=== PATIENT | female | born 1965 | race Caucasian/White ===

== ENCOUNTER 2019-08-11 11:25 | Outpatient (REF) | payer SELFPAY ==
[2019-08-12 09:10] LABS: COVID-19 RT-PCR UVMMC Result Negative (Negative)
== END 2019-08-11 11:45 ==
LOC: LBN 11:25
PROVIDERS: Visit Provider Nurse Practitioner Adult Health
DX: Z11.59 Encounter for screening for other viral diseases (principal)
CPT/HCPCS: U0003

== ENCOUNTER 2020-06-01 17:27 | Outpatient (REF) | payer SELFPAY ==
[2020-06-03 15:32] LABS: COVID-19 RT-PCR UVMMC Result Negative (Negative)
== END 2020-06-01 17:28 | disposition home or self-care (01) ==
LOC: LBN 17:27
PROVIDERS: Visit Provider Nurse Practitioner Adult Health
DX: Z20.822 Contact with and (suspected) exposure to COVID-19 (principal)
CPT/HCPCS: U0003